=== PATIENT | female | born 1970 | race African-American/Black ===

== ENCOUNTER 2021-09-15 01:47 | Emergency (ER) | payer OTHER ==
[2021-09-15 01:54] VITALS: BP 151/94; TEMP 97.9; BMI 32.9
[2021-09-15] MEDS ORDERED: ACETAMINOPHEN 1000 MG/100 ML VIAL IVPB ONE (02:16)
[2021-09-15] MEDS ORDERED: ACETAMINOPHEN INJECTION 100 ML IVPB ONE (02:25)
[2021-09-15 02:56] LABS: BASO % 1.3 % (0-2.0); HEMATOCRIT 38.3 % (32.4-45.2); HEMOGLOBIN 12.7 GM/dL (10.7-15.3); LYMPH % 42.6 % (8-40); MCH 27.9 pg (25.7-33.7); MCHC 33.1 g/dl (32.0-36.0); MEAN CELL VOLUME 84.3 fl (80-96); MEAN PLT VOLUME 9.2 fl (7.5-11.1); MONO % 17.1 % (3.8-10.2); PLATELET COUNT 194 10^3/uL (134-434); RBC 4.55 M/mm3 (3.60-5.2); RDW 15.4 % (11.6-15.6)
[2021-09-15] MEDS ORDERED: FLUTICASONE PROP 0.05% 16 GM NASAL SPRAY NS ONE (02:59)
[2021-09-15] MEDS ORDERED: KETOROLAC TROMETHAMINE 30 MG/1 ML VIAL IVPUSH ONE (03:17)
[2021-09-15 03:21] LABS: ALBUMIN 3.1 g/dl (3.4-5.0); BLOOD UREA NITROGEN 6.9 mg/dL (7-18)
[2021-09-15 03:24] LABS: CREATININE 0.8 mg/dL (0.55-1.3)
[2021-09-15] MEDS ORDERED: KETOROLAC TROMETHAMINE 30 MG/1 ML VIAL ONE (03:24)
[2021-09-15 03:26] LABS: BILIRUBIN,TOTAL 0.1 mg/dL (0.2-1); TOT PROT 7.5 g/dl (6.4-8.2)
[2021-09-15 04:20] VITALS: PULSE 85
== END 2021-09-15 04:21 | disposition home or self-care (01) ==
LOC: JER 01:47
PROC: 3E033NZ Introduction of Analgesics, Hypnotics, Sedatives into Peripheral Vein, Percutaneous Approach (ICD-10-PCS; principal; 2021-09-15)
PROC: 3E0333Z Introduction of Anti-inflammatory into Peripheral Vein, Percutaneous Approach (ICD-10-PCS; 2021-09-15)
DX: J32.9 Chronic sinusitis, unspecified (principal)
CPT/HCPCS: 36415; 80053; 85025; 99284-25; C9803; J0131; U0003; U0005